=== PATIENT | female | born 1990 | race Caucasian/White ===

== ENCOUNTER 2016-04-19 15:55 | Inpatient (IN) | payer OTHER ==
[2016-04-19 16:16] VITALS: BMI 23.6
--- NOTE | 2016-04-19 18:03 | HP ---
COWS - Scale Resting Pulse: 0= [place] 80 or Below Sweatin=Flushed/Facial Moisture Restless Observation: 3= Extraneous Movement Pupil Size: 1= Pupils >than Normal Bone or Joint Aches: 2= Severe Diffuse Aches Runny Nose/ Eye Tearin= Runny Nose/Eyes GI Upset > 30mins: 3= Vomiting/Diarrhea Tremor Observation: 2= Slight Tremor Visible Yawning Observation: 2= >3x During Session Anxiety or Irritability: 2=Irritable/Anxious Goose Flesh Skin: 0=Smooth Skin COWS Score: 19 Admission ROS BHS - HPI Chief Complaint: I NEED HELP TO STOP USING DRUG HEROIN AND COCAINE Allergies/Adverse Reactions: Allergies Allergy/AdvReac Type Severity Reaction Status Date / Time potassium Allergy Verified 04/19/16 18:00 SEAFOOD Allergy Uncoded 04/19/16 17:59 History of Present Illness: THIS 26 YEARS OLD FEMALE WITH HEROIN AND COCAINE DEPENDENCE,WITHDRAWAL SYMPTOM, LAST DETOX 10/15 [facility],NOT COMPLETED SOBRIETY PERIOD 1 YEAR Exam Limitations: No Limitations - Ebola screening Have you traveled outside of the country in the last 21 days: No Have you had contact with anyone from an Ebola affected area: No Have you been sick,other than usual withdrawal symptoms: No Do you have a fever: No - Review of Systems Constitutional: Chills, Diaphoresis, Loss of Appetite, Malaise, Night Sweats, Changes in sleep, Weakness, Unexplained wgt Loss EENT: reports: Tearing, Nose Congestion Respiratory: reports: No Symptoms reported Cardiac: reports: No Symptoms Reported GI: reports: Diarrhea, Nausea, Vomiting, Abdominal cramping : reports: No Symptoms Reported Musculoskeletal: reports: Back Pain, Joint Pain, Muscle Pain, Joint Stiffness Integumentary: reports: Dryness Neuro: reports: Headache, Tremors Endocrine: reports: No Symptoms Reported Hematology: reports: No Symptoms Reported Psychiatric: reports: Depressed Patient History - Patient Medical History Hx Anemia: No Hx Asthma: No Hx Chronic Obstructive Pulmonary Disease (COPD): No Hx Cancer: No Hx Cardiac Disorders: No Hx Congestive Heart Failure: No Hx Hypertension: No Hx Hypercholesterolemia: No Hx Pacemaker: No HX Cerebrovascular Accident: No Hx Seizures: No Hx Dementia: No Hx Diabetes: No Hx Gastrointestinal Disorders: No Hx Liver Disease: No Hx Genitourinary Disorders: No Hx Sexually Transmitted Disorders: No Hx Renal Disease (ESRD): No Hx Thyroid Disease: No Hx Human Immunodeficiency Virus (HIV): No (2016 NEGATIVE) Hx Hepatitis C: No Hx Depression: Yes (NO MED) Hx Suicide Attempt: No Hx Bipolar Disorder: No Hx Schizophrenia: No Other Medical History: NO SUICIDAL,NO HOMICIDAL - Patient Surgical History Hx Cholecystectomy: Yes (LAP CHOLECYSTECTOMY IN [facility] IN 2014) - PPD History Previous Implant?: Yes Documented Results: Negative w/o proof Implanted On Prior [facility] Admission?: No PPD to be Administered?: Yes - Reproductive History Patient is a Female of Child Bearing Age (11 -55 yrs old): Yes Last Menstrual Period: 02/27/16 Patient : No - Smoking Cessation Smoking history: Never smoked - Substance & Tx. History Hx Alcohol Use: No Hx Substance Use: Yes Substance Use Type: Cocaine, Heroin Hx Substance Use Treatment: Yes ([facility] [place] 10/15 NOT COMPLETED) - Substances Abused Heroin Route: Injection Frequency: Daily Amount used: 20 BAGS Age of first use: 25 Date of Last Use: 04/19/16 Cocaine Route: Injection Frequency: Daily Amount used: 50$ Age of first use: 25 Date of Last Use: 04/19/16 Family Disease History - Family Disease History Family History: Denies Admission Physical Exam BHS - Vital Signs Vital Signs: Vital Signs - 24 hr 04/19/16 16:14 Temperature 97.7 F Pulse Rate 70 Respiratory 20 Rate Blood Pressure 105/50 - Physical General Appearance: Yes: Moderate Distress, Tremorous, Irritable, Sweating, Anxious HEENTM: Yes: Nasal Congestion Respiratory: Yes: Lungs Clear Neck: Yes: Within Normal Limits, No masses,lesions,Nodules, Supple Breast: Yes: Breast Exam Deferred Cardiology: Yes: Within Normal Limits, Regular Rhythm, Regular Rate, S1, S2 Abdominal: Yes: Within Normal Limits, Normal Bowel Sounds, Non Tender, Flat, Soft Genitourinary: Yes: Within Normal Limits Back: Yes: Muscle Spasm Musculoskeletal: Yes: Back pain, Joint Stiffness, Muscle Pain Extremities: Yes: Tremors 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: 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: 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, Fully Oriented, Alert, Motor Strength 5/5 Integumentary: Yes: Dry Lymphatic: Yes: Within Normal Limits - Diagnostic (1) Opioid dependence with withdrawal Current Visit: Yes Status: Acute (2) Cocaine dependence Current Visit: Yes Status: Acute (3) Depression Current Visit: Yes Status: Acute (4) Weight loss Current Visit: Yes Status: Acute Cleared for Admission [facility] - Detox or Rehab [facility] Level of Care: Medically Managed Detox Regimen/Protocol: Methadone [facility] Breath Alcohol Content Breath Alcohol Content: 0 Urine Pregancy Test - Result Urine Test Results: Negative- NO Line Present Urine Drug Screen - Results Drug Screen Negative: No Urine Drug Screen Results: CHRISTINA-Cocaine, OPI-Opiates, OXY-Oxycodone
[2016-04-19] MEDS ORDERED: MAGNESIUM CITRATE 300 ML BOTTLE PO PRN (18:15)
[2016-04-19] MEDS ORDERED: ACETAMINOPHEN 325 MG TABLET (FP) PO PRN (18:15)
[2016-04-19] MEDS ORDERED: MENTHOL/PHENOL 1 EACH UD MM PRN (18:15)
[2016-04-19] MEDS ORDERED: IBUPROFEN 400 MG TABLET (FP) PO PRN (18:15)
[2016-04-19] MEDS ORDERED: diphenhydrAMINE HCL 50 MG CAPSULE PO PRN (18:15)
[2016-04-19] MEDS ORDERED: LOPERAMIDE HCL 2 MG CAPSULE PO PRN (18:15)
[2016-04-19] MEDS ORDERED: guaiFENesin/D-METHORPHAN HB 10 ML UNIT-DOSE CUPS PO PRN (18:15)
[2016-04-19] MEDS ORDERED: METHADONE HCL 10 MG TABLET (FOR DETOX USE ONLY) PO ONE ×2 (18:15→23:00)
[2016-04-19] MEDS ORDERED: MAG HYDROX/AL HYDROX/SIMETH 30 ML UNIT-DOSE CUP PO PRN (18:15)
[2016-04-19] MEDS ORDERED: P-EPHED 60MG/TRIPROLIDI 2.5MG TABLET PO PRN (18:15)
[2016-04-19] MEDS ORDERED: MAGNESIUM HYDROX 2400MG/30ML ORAL SUSPENSION 30 ML CUP PO PRN (18:15)
[2016-04-19] MEDS: diazePAM 5 MG TABLET PO PRN (19:27)
[2016-04-19] MEDS: THIAMINE HCL 100 MG TABLET (FP) PO SCH (22:20)
[2016-04-19] MEDS: cloNIDine HCL 0.1 MG TABLET PO SCH (22:20)
[2016-04-20] MEDS: diazePAM 5 MG TABLET PO PRN ×4 (01:26→22:34)
[2016-04-20] MEDS ORDERED: METHADONE HCL 10 MG TABLET (FOR DETOX USE ONLY) PO ONE (10:00)
[2016-04-20] MEDS: CYCLOBENZAPRINE HCL 10 MG TABLET (FP) PO PRN (10:23)
[2016-04-20] MEDS: PRENATAL VITAMINS W/ FOLIC ACID TABLET (FP) PO SCH (10:23)
[2016-04-20] MEDS: cloNIDine HCL 0.1 MG TABLET PO SCH ×2 (10:24→22:33)
[2016-04-20 10:31] LABS: MCHC 28.7 g/dl (32.0-36.0); MEAN CELL VOLUME 56.9 fl (80-96); MEAN PLT VOLUME 8.8 fl (7.5-11.1); PLATELET COUNT 289 K/MM3 (134-434); WHITE BLOOD COUNT 6.8 K/mm3 (4.0-10.0)
[2016-04-20 10:36] LABS: ALBUMIN 3.2 g/dl (3.4-5.0); ANION GAP 8 (8-16); CALCIUM 8.6 mg/dL (8.5-10.1); CO2 25 mmol/L (21-32); CREATININE 0.7 mg/dL (0.55-1.02); GLUCOSE,RANDOM 83 mg/dL (74-106); SGOT/AST 93 U/L (15-37); SGPT/ALT 143 U/L (12-78); URINE APPEARANCE CLOUDY; URINE BILIRUBIN NEGATIVE (NEGATIVE); URINE COLOR YELLOW; URINE GLUCOSE (UA) NEGATIVE (NEGATIVE); URINE KETONE NEGATIVE (NEGATIVE); URINE NITRITE POSITIVE (NEGATIVE); URINE UROBILINOGEN 4.0 E.U/dl E.U./dl (0.2-1.0)
[2016-04-20 10:38] LABS: ALK PHOS 95 U/L (45-117); BILIRUBIN,TOTAL 0.4 mg/dL (0.2-1.0); TOT PROT 6.9 g/dl (6.4-8.2)
--- NOTE | 2016-04-20 10:50 | PN ---
S COWS - Scale Resting Pulse: 0= [place] 80 or Below Sweatin=Flushed/Facial Moisture Restless Observation: 3= Extraneous Movement Pupil Size: 1= Pupils >than Normal Bone or Joint Aches: 2= Severe Diffuse Aches Runny Nose/ Eye Tearin= Runny Nose/Eyes GI Upset > 30mins: 2= Nausea/Diarrhea Tremor Observation of Outstretched Hands: 2= Slight Tremor Visible Yawning Observation: 1= 1-2x During Session Anxiety or Irritability: 2=Irritable/Anxious Goose Flesh Skin: 0=Smooth Skin COWS Score: 17 BHS Progress Note (SOAP) Subjective: alert,irritable,anxious,interrupted sleep,tremor,pain in the body and back, tremor Objective: 04/20/16 10:47 Vital Signs Temperature 97.3 F L 04/20/16 09:25 Pulse Rate 70 04/20/16 09:25 Respiratory Rate 16 04/20/16 09:25 Blood Pressure 110/53 04/20/16 09:25 O2 Sat by Pulse Oximetry (%) ekg sinus rhythm with sinus arrhythmia 04/20/16 10:49 Laboratory Last Values Sodium 141 mmol/L (136-145) 04/20/16 07:45 Potassium 4.0 mmol/L (3.5-5.1) 04/20/16 07:45 Chloride 108 mmol/L (98-107) H 04/20/16 07:45 Carbon Dioxide 25 mmol/L (21-32) 04/20/16 07:45 Anion Gap 8 (8-16) 04/20/16 07:45 BUN 11 mg/dL (7-18) 04/20/16 07:45 Creatinine 0.7 mg/dL (0.55-1.02) 04/20/16 07:45 Creat Clearance w eGFR > 60 (>60) 04/20/16 07:45 Random Glucose 83 mg/dL (74-106) 04/20/16 07:45 Calcium 8.6 mg/dL (8.5-10.1) 04/20/16 07:45 Total Bilirubin 0.4 mg/dL (0.2-1.0) 04/20/16 07:45 AST 93 U/L (15-37) H 04/20/16 07:45 ALT 143 U/L (12-78) H 04/20/16 07:45 Alkaline Phosphatase 95 U/L (45-117) 04/20/16 07:45 Total Protein 6.9 g/dl (6.4-8.2) 04/20/16 07:45 Albumin 3.2 g/dl (3.4-5.0) L 04/20/16 07:45 other labs pending Assessment: withdrawal symptom Plan: continue detox
[2016-04-20 11:08] LABS: MCH 16.3 pg (25.7-33.7)
[2016-04-20 11:13] LABS: URINE BLOOD 1+ (NEGATIVE); URINE LEUK ESTERASE 3+ (NEGATIVE); URINE PROTEIN 1+ (NEGATIVE)
[2016-04-20 11:17] LABS: URINE MUCUS FEW; URINE RBC 15 /hpf (0-3); URINE WBC 737 /hpf (3-5)
--- NOTE | 2016-04-20 11:19 | PN ---
S Progress Note Note: addendum history of anemia for 2 years on iron pill Laboratory Last Values WBC 6.8 K/mm3 (4.0-10.0) 04/20/16 07:45 RBC 4.16 M/mm3 (3.60-5.2) 04/20/16 07:45 Hgb 6.8 GM/dL (10.7-15.3) L* 04/20/16 07:45 Hct 23.7 % (32.4-45.2) L 04/20/16 07:45 MCV 56.9 fl (80-96) L 04/20/16 07:45 MCHC 28.7 g/dl (32.0-36.0) L 04/20/16 07:45 RDW 18.0 % (11.6-15.6) H 04/20/16 07:45 Plt Count 289 K/MM3 (134-434) 04/20/16 07:45 MPV 8.8 fl (7.5-11.1) 04/20/16 07:45 Sodium 141 mmol/L (136-145) 04/20/16 07:45 Potassium 4.0 mmol/L (3.5-5.1) 04/20/16 07:45 Chloride 108 mmol/L (98-107) H 04/20/16 07:45 Carbon Dioxide 25 mmol/L (21-32) 04/20/16 07:45 Anion Gap 8 (8-16) 04/20/16 07:45 BUN 11 mg/dL (7-18) 04/20/16 07:45 Creatinine 0.7 mg/dL (0.55-1.02) 04/20/16 07:45 Creat Clearance w eGFR > 60 (>60) 04/20/16 07:45 Random Glucose 83 mg/dL (74-106) 04/20/16 07:45 Calcium 8.6 mg/dL (8.5-10.1) 04/20/16 07:45 Total Bilirubin 0.4 mg/dL (0.2-1.0) 04/20/16 07:45 AST 93 U/L (15-37) H 04/20/16 07:45 ALT 143 U/L (12-78) H 04/20/16 07:45 Alkaline Phosphatase 95 U/L (45-117) 04/20/16 07:45 Total Protein 6.9 g/dl (6.4-8.2) 04/20/16 07:45 Albumin 3.2 g/dl (3.4-5.0) L 04/20/16 07:45 Urine Color Yellow 04/20/16 07:45 Urine Appearance Cloudy 04/20/16 07:45 Urine pH 6.0 (5.0-8.0) 04/20/16 07:45 Ur Specific [place] 1.019 (1.001-1.035) 04/20/16 07:45 Urine Protein 1+ (NEGATIVE) H 04/20/16 07:45 Urine Glucose (UA) Negative (NEGATIVE) 04/20/16 07:45 Urine Ketones Negative (NEGATIVE) 04/20/16 07:45 Urine Blood 1+ (NEGATIVE) H 04/20/16 07:45 Urine Nitrite Positive (NEGATIVE) 04/20/16 07:45 Urine Bilirubin Negative (NEGATIVE) 04/20/16 07:45 Urine Urobilinogen 4.0 e.u/dl E.U./dl (0.2-1.0) H 04/20/16 07:45 Ur Leukocyte Esterase 3+ (NEGATIVE) H 04/20/16 07:45 ferrous sulfate 325 mgs po tid nutritional suppliment ensure plus 120 mls po bid continue detox repaeat cbc in am
[2016-04-20] MEDS: FERROUS SO4 325 MG TABLET (FP) PO SCH ×2 (12:20→18:02)
[2016-04-20 13:17] LABS: HYPOCHROMIA 4+
[2016-04-20 13:18] LABS: ANISOCYTOSIS 1+; MICROCYTOSIS 3+; OVALOCYTES 2+; POIKILOCYTOSIS 2+; TEAR DROP CELLS 1+
[2016-04-20] MEDS: THIAMINE HCL 100 MG TABLET (FP) PO SCH (22:16)
--- NOTE | 2016-04-21 00:47 | EKG ---
Test Reason : Blood Pressure : / mmHG Vent. Rate : 069 BPM Atrial Rate : 069 BPM P-R Int : 136 ms QRS Dur : 078 ms QT Int : 430 ms P-R-T Axes : 044 033 036 degrees QTc Int : 460 ms SINUS RHYTHM WITH MARKED SINUS ARRHYTHMIA OTHERWISE NORMAL ECG NO PREVIOUS ECGS AVAILABLE Confirmed by SALMA POE MD ([id number]) on 04/21/2016 12:47:25 AM Referred By: Confirmed By:SALMA POE MD
[2016-04-21] MEDS: FERROUS SO4 325 MG TABLET (FP) PO SCH ×3 (07:21→17:40)
--- NOTE | 2016-04-21 09:24 | CONSULT ---
[facility] Psychiatric Consult - Data Date of interview: 04/21/16 Admission source: [facility] Identifying data: First admission to [facility] for this 26 y/o female seeking detox treatment on for heroin,cocaine and cannabis dependence.Patient is single,a mother of one,domiciledunemployed and supported by relatives/friends. Substance Abuse History: - Smoking Cessation. Smoking history: Never smoked. - Substance & Tx. History. Hx Alcohol Use: No. Hx Substance Use: Yes. Substance Use Type: Cocaine, Heroin. Hx Substance Use Treatment: Yes ([facility] [place] 10/15 NOT COMPLETED). - Substances Abused. Heroin. Route: Injection. Frequency: Daily. Amount used: 20 BAGS. Age of first use: 25. Date of Last Use: 04/19/16. Cocaine. Route: Injection. Frequency: Daily. Amount used: 50$. Age of first use: 25. Date of Last Use: 04/19/16. Confirmed by patient in this interview. Medical History: History of cholecystectomy (2014). Psychiatric History: No reported history of psychiatric hospitalizations.Patient states that she was seeing a private psychiatrist,for a short period in 2016,to address anxiety/depression.She was reportedly given scripts that she never filled.No recall of the medications.Ms Carter denies history of suicide attempts. Physical/Sexual Abuse/Trauma History: Patient denies. Additional Comment: Urine Drug Screen Results: CHRISTINA-Cocaine, OPI-Opiates, OXY- Oxycodone.Noted. Mental Status Exam - Mental Status Exam Alert and Oriented to: Time, Place, Person Cognitive Function: Good Patient Appearance: Well Groomed Mood: Withdrawn Affect: Appropriate, Normal Range Patient Behavior: Fatigued, Appropriate, Cooperative Speech Pattern: Clear Voice Loudness: Normal Thought Process: Goal Oriented Thought Disorder: Not Present Hallucinations: Denies Suicidal Ideation: Denies Homicidal Ideation: Denies Insight/Judgement: Poor Sleep: Poorly, Difficulty falling asleep Appetite: Poor, Weight loss Muscle strength/Tone: Normal Gait/Station: Normal Psychiatric Findings - Problem List ([place] 1, 2,3) (1) Cocaine dependence Current Visit: Yes Status: Acute (2) Opioid dependence with withdrawal Current Visit: Yes Status: Acute (3) Substance induced mood disorder Current Visit: Yes Status: Acute (4) Anemia Current Visit: Yes Status: Acute (5) Weight loss Current Visit: Yes Status: Chronic (6) Insomnia Current Visit: Yes Status: Acute - Initial Treatment Plan Initial Treatment Plan: Psychoeducation.Detoxification.Zolpidem 5 mg po hs prn.Patient is made aware of risk of parasomnias.She agrees with this plan.Observation.
[2016-04-21] MEDS ORDERED: METHADONE HCL 5 MG TABLET (FOR DETOX USE ONLY) PO ONE (10:00)
[2016-04-21] MEDS: cloNIDine HCL 0.1 MG TABLET PO SCH ×2 (10:32→22:31)
[2016-04-21] MEDS: PRENATAL VITAMINS W/ FOLIC ACID TABLET (FP) PO SCH (10:32)
[2016-04-21] MEDS: diazePAM 5 MG TABLET PO PRN ×3 (10:35→22:32)
--- NOTE | 2016-04-21 11:46 | PN ---
BHS COWS - Scale Resting Pulse: 0= [place] 80 or Below Sweatin= Chills/Flushing Restless Observation: 3= Extraneous Movement Pupil Size: 1= Pupils >than Normal Bone or Joint Aches: 2= Severe Diffuse Aches Runny Nose/ Eye Tearin= Runny Nose/Eyes GI Upset > 30mins: 3= Vomiting/Diarrhea Tremor Observation of Outstretched Hands: 2= Slight Tremor Visible Yawning Observation: 1= 1-2x During Session Anxiety or Irritability: 2=Irritable/Anxious Goose Flesh Skin: 0=Smooth Skin COWS Score: 17 BHS Progress Note (SOAP) Subjective: ALERT,IRRITABLE,ANXIOUS,INTERRUPTED SLEEP,PAIN IN THE BODY Objective: 04/21/16 11:45 Vital Signs Temperature 97.0 F L 04/21/16 10:00 Pulse Rate 70 04/21/16 10:00 Respiratory Rate 18 04/21/16 10:00 Blood Pressure 95/48 04/21/16 10:00 O2 Sat by Pulse Oximetry (%) Assessment: 04/21/16 11:46 WITHDRAWAL SYMPTOM Plan: CONTINUE DETOX,REPEAT CBC IN AM
[2016-04-21] MEDS: CYCLOBENZAPRINE HCL 10 MG TABLET (FP) PO PRN (12:23)
[2016-04-21] MEDS: THIAMINE HCL 100 MG TABLET (FP) PO SCH (22:31)
[2016-04-21] MEDS: ZOLPIDEM TARTRATE 5 MG TABLET PO PRN (22:32)
[2016-04-22] MEDS: CYCLOBENZAPRINE HCL 10 MG TABLET (FP) PO PRN (02:45)
[2016-04-22] MEDS: diazePAM 5 MG TABLET PO PRN ×3 (02:45→15:57)
[2016-04-22] MEDS: FERROUS SO4 325 MG TABLET (FP) PO SCH ×3 (07:55→17:35)
[2016-04-22] MEDS ORDERED: METHADONE HCL 5 MG TABLET (FOR DETOX USE ONLY) PO ONE (10:00)
[2016-04-22 10:18] LABS: MCHC 28.7 g/dl (32.0-36.0); MEAN CELL VOLUME 57.7 fl (80-96); MEAN PLT VOLUME 8.8 fl (7.5-11.1); PLATELET COUNT 274 K/MM3 (134-434); RDW 18.1 % (11.6-15.6); WHITE BLOOD COUNT 5.7 K/mm3 (4.0-10.0)
[2016-04-22 10:20] LABS: MCH 16.6 pg (25.7-33.7)
[2016-04-22] MEDS: PRENATAL VITAMINS W/ FOLIC ACID TABLET (FP) PO SCH (10:24)
[2016-04-22] MEDS: cloNIDine HCL 0.1 MG TABLET PO SCH ×2 (10:24→22:13)
--- NOTE | 2016-04-22 12:08 | PN ---
BHS Progress Note (SOAP) Subjective: interrupted sleep, sweats , headaches , stomach discomfort Objective: 04/22/16 12:06 Vital Signs Temp 97.2 F L 04/22/16 09:50 Pulse 93 H 04/22/16 09:50 Resp 18 04/22/16 09:50 BP 105/63 04/22/16 09:50 Pulse Ox Laboratory Tests 04/20/16 04/20/16 04/20/16 07:45 07:45 07:45 WBC 6.8 RBC 4.16 Hgb 6.8 L* Hct 23.7 L MCV 56.9 L MCHC 28.7 L RDW 18.0 H Plt Count 289 MPV 8.8 Hypochromic-Microcytic 4+ Poikilocytosis 2+ Anisocytosis 1+ Microcytosis 3+ Tear Drop Cells 1+ Ovalocytes 2+ Morphology Comment Slide scanned Sodium 141 Potassium 4.0 Chloride 108 H Carbon Dioxide 25 Anion Gap 8 BUN 11 Creatinine 0.7 Creat Clearance w eGFR > 60 Random Glucose 83 Calcium 8.6 Total Bilirubin 0.4 AST 93 H ALT 143 H Alkaline Phosphatase 95 Total Protein 6.9 Albumin 3.2 L Urine Color Urine Appearance Urine pH Ur Specific [place] Urine Protein Urine Glucose (UA) Urine Ketones Urine Blood Urine Nitrite Urine Bilirubin Urine Urobilinogen Ur Leukocyte Esterase Urine RBC Urine WBC Ur Epithelial Cells Urine Mucus RPR Titer Nonreactive 04/20/16 04/22/16 07:45 08:00 WBC 5.7 RBC 4.34 Hgb 7.2 L Hct 25.1 L MCV 57.7 L MCHC 28.7 L RDW 18.1 H Plt Count 274 MPV 8.8 Hypochromic-Microcytic Poikilocytosis Anisocytosis Microcytosis Tear Drop Cells Ovalocytes Morphology Comment Sodium Potassium Chloride Carbon Dioxide Anion Gap BUN Creatinine Creat Clearance w eGFR Random Glucose Calcium Total Bilirubin AST ALT Alkaline Phosphatase Total Protein Albumin Urine Color Yellow Urine Appearance Cloudy Urine pH 6.0 Ur Specific [place] 1.019 Urine Protein 1+ H Urine Glucose (UA) Negative Urine Ketones Negative Urine Blood 1+ H Urine Nitrite Positive Urine Bilirubin Negative Urine Urobilinogen 4.0 e.u/dl H Ur Leukocyte Esterase 3+ H Urine RBC 15 Urine WBC 737 Ur Epithelial Cells Rare Urine Mucus Few RPR Titer pt aox3 in nad ambulating Assessment: 04/22/16 12:06 withdrawl sx anemia -h/h slight improvement Plan: cont. detox increase fluids cont iron cbc , ferritin
[2016-04-22] MEDS: hydrOXYzine PAMOATE 50 MG CAPSULE (FP) PO PRN ×2 (12:57→22:13)
[2016-04-22] MEDS: THIAMINE HCL 100 MG TABLET (FP) PO SCH (22:13)
[2016-04-22] MEDS: ZOLPIDEM TARTRATE 5 MG TABLET PO PRN (22:13)
[2016-04-23] MEDS: hydrOXYzine PAMOATE 50 MG CAPSULE (FP) PO PRN ×3 (03:36→22:22)
[2016-04-23] MEDS: CYCLOBENZAPRINE HCL 10 MG TABLET (FP) PO PRN ×2 (03:36→10:23)
[2016-04-23] MEDS: FERROUS SO4 325 MG TABLET (FP) PO SCH ×3 (07:25→17:21)
[2016-04-23] MEDS ORDERED: METHADONE HCL 10 MG TABLET (FOR DETOX USE ONLY) PO ONE (10:00)
--- NOTE | 2016-04-23 10:22 | PN ---
BHS Progress Note (SOAP) Subjective: INTERRUPTED SLEEP, SWEATS, BODYACHES Objective: 04/23/16 10:16 Vital Signs Temperature 98.1 F 04/23/16 09:53 Pulse Rate 93 H 04/23/16 09:53 Respiratory Rate 16 04/23/16 09:53 Blood Pressure 93/58 04/23/16 09:53 O2 Sat by Pulse Oximetry (%) Laboratory Tests 04/20/16 04/20/16 04/20/16 07:45 07:45 07:45 WBC 6.8 RBC 4.16 Hgb 6.8 L* Hct 23.7 L MCV 56.9 L MCHC 28.7 L RDW 18.0 H Plt Count 289 MPV 8.8 Hypochromic-Microcytic 4+ Poikilocytosis 2+ Anisocytosis 1+ Microcytosis 3+ Tear Drop Cells 1+ Ovalocytes 2+ Morphology Comment Slide scanned Sodium 141 Potassium 4.0 Chloride 108 H Carbon Dioxide 25 Anion Gap 8 BUN 11 Creatinine 0.7 Creat Clearance w eGFR > 60 Random Glucose 83 Calcium 8.6 Total Bilirubin 0.4 AST 93 H ALT 143 H Alkaline Phosphatase 95 Total Protein 6.9 Albumin 3.2 L Urine Color Urine Appearance Urine pH Ur Specific [place] Urine Protein Urine Glucose (UA) Urine Ketones Urine Blood Urine Nitrite Urine Bilirubin Urine Urobilinogen Ur Leukocyte Esterase Urine RBC Urine WBC Ur Epithelial Cells Urine Mucus RPR Titer Nonreactive 04/20/16 04/22/16 07:45 08:00 WBC 5.7 RBC 4.34 Hgb 7.2 L Hct 25.1 L MCV 57.7 L MCHC 28.7 L RDW 18.1 H Plt Count 274 MPV 8.8 Hypochromic-Microcytic Poikilocytosis Anisocytosis Microcytosis Tear Drop Cells Ovalocytes Morphology Comment Sodium Potassium Chloride Carbon Dioxide Anion Gap BUN Creatinine Creat Clearance w eGFR Random Glucose Calcium Total Bilirubin AST ALT Alkaline Phosphatase Total Protein Albumin Urine Color Yellow Urine Appearance Cloudy Urine pH 6.0 Ur Specific [place] 1.019 Urine Protein 1+ H Urine Glucose (UA) Negative Urine Ketones Negative Urine Blood 1+ H Urine Nitrite Positive Urine Bilirubin Negative Urine Urobilinogen 4.0 e.u/dl H Ur Leukocyte Esterase 3+ H Urine RBC 15 Urine WBC 737 Ur Epithelial Cells Rare Urine Mucus Few RPR Titer PT AOX3 LYING IN BED Assessment: 04/23/16 10:17 WITHDRAWL SX'S ANEMIA Plan: CONT. DETOX INCREASE FLUIDS F/UP PENDING LABS D/C IN AM
[2016-04-23 10:23] LABS: BASOPHIL 0.6 % (0-2.0); EOSINOPHIL 5.4 % (0-4.5); MCHC 28.8 g/dl (32.0-36.0); MEAN CELL VOLUME 57.5 fl (80-96); NEUTROPHILS 25.1 % (42.8-82.8); PLATELET COUNT 279 K/MM3 (134-434); WHITE BLOOD COUNT 5.3 K/mm3 (4.0-10.0)
[2016-04-23] MEDS: cloNIDine HCL 0.1 MG TABLET PO SCH ×3 (10:23→22:56)
[2016-04-23] MEDS: PRENATAL VITAMINS W/ FOLIC ACID TABLET (FP) PO SCH (10:26)
[2016-04-23 10:34] LABS: MCH 16.6 pg (25.7-33.7)
[2016-04-23 12:21] LABS: ANISOCYTOSIS 4+; HYPOCHROMIA 4+; MICROCYTOSIS 3+; SCHISTOCYTES 2+
[2016-04-23 14:45] LABS: URINE APPEARANCE CLOUDY; URINE BILIRUBIN NEGATIVE (NEGATIVE); URINE BLOOD NEGATIVE (NEGATIVE); URINE COLOR DKYELLOW; URINE GLUCOSE (UA) NEGATIVE (NEGATIVE); URINE KETONE NEGATIVE (NEGATIVE); URINE LEUK ESTERASE 3+ (NEGATIVE); URINE NITRITE NEGATIVE (NEGATIVE); URINE PROTEIN NEGATIVE (NEGATIVE); URINE UROBILINOGEN 2.0 E.U/dl E.U./dl (0.2-1.0)
[2016-04-23 15:23] LABS: CALCIUM OXALATE CRYSTALS MODERATE /hpf (NONE SEEN); URINE BACTERIA FEW /hpf (NONE SEEN); URINE MUCUS FEW; URINE RBC 10 /hpf (0-3); URINE WBC 1181 /hpf (3-5)
[2016-04-23] MEDS ORDERED: LEVOFLOXACIN 500 MG TABLET (FP) PO ONE (17:00)
[2016-04-23] MEDS: THIAMINE HCL 100 MG TABLET (FP) PO SCH (22:22)
[2016-04-24] MEDS: CYCLOBENZAPRINE HCL 10 MG TABLET (FP) PO PRN (05:46)
[2016-04-24] MEDS: hydrOXYzine PAMOATE 50 MG CAPSULE (FP) PO PRN (05:46)
[2016-04-24] MEDS ORDERED: METHADONE HCL 5 MG TABLET (FOR DETOX USE ONLY) PO ONE (06:00)
--- NOTE | 2016-04-24 09:21 | DS ---
[facility] Detox Discharge Summary Admission Date: 04/19/16 Discharge Date: 04/24/16 - History Present History: Cannabis Dependence, Cocaine Dependence, Opioid Dependence - Physical Exam Results Vital Signs: Vital Signs Temperature 96.7 F L 04/24/16 06:21 Pulse Rate 82 04/24/16 06:21 Respiratory Rate 18 04/24/16 06:21 Blood Pressure 135/87 04/24/16 06:21 O2 Sat by Pulse Oximetry (%) - Treatment Hospital Course: Detox Protocol Followed, Detoxed Safely, Responded well, Discharged Condition Good, Rehab Referral Accepted - Medication Discharge Medications: Ambulatory Orders Levofloxacin [Levaquin -] 500 mg PO DAILY@0600 #4 tablet 04/24/16 - Diagnosis (1) Anemia Current Visit: Yes Status: Acute Qualifiers: Anemia type: iron deficiency (2) Cannabis dependence Current Visit: Yes Status: Acute (3) Cocaine dependence Current Visit: Yes Status: Chronic Qualifiers: Substance use status: uncomplicated Qualified Code(s): F14.20 - Cocaine dependence, uncomplicated (4) Depression Current Visit: Yes Status: Acute (5) Insomnia Current Visit: Yes Status: Acute (6) Opioid dependence with withdrawal Current Visit: Yes Status: Chronic (7) Substance induced mood disorder Current Visit: Yes Status: Acute (8) Weight loss Current Visit: Yes Status: Chronic - AMA Did Patient Leave Against Medical Advice: No
[2016-04-24 09:44] VITALS: BP 109/68; PULSE 68; TEMP 97.5
[2016-04-24] MEDS ORDERED: LEVOFLOXACIN 500 MG TABLET (FP) PO SCH (10:00)
== END 2016-04-24 10:07 | disposition home or self-care (01) | DRG 773 ==
LOC: YASAS 15:55 → Y6N 17:07
PROVIDERS: ADMIT Internal Medicine; ATTEND Internal Medicine Addiction Medicine
PROC: HZ2ZZZZ Detoxification Services for Substance Abuse Treatment (ICD-10-PCS; principal; 2016-04-19)
DX: F11.23 Opioid dependence with withdrawal (principal); F14.20 Cocaine dependence, uncomplicated; F19.24 Other psychoactive substance dependence with psychoactive substance-induced mood disorder; F32.9 Major depressive disorder, single episode, unspecified; D50.9 Iron deficiency anemia, unspecified; G47.00 Insomnia, unspecified; I49.9 Cardiac arrhythmia, unspecified; Z87.898 Personal history of other specified conditions; Z90.49 Acquired absence of other specified parts of digestive tract
CPT/HCPCS: 36415; 80053; 81003; 81015; 82728; 85025; 85027; 86593; 93005; 93010